=== PATIENT | female | born 1965 | race Caucasian/White ===

== ENCOUNTER 2024-12-10 00:32 | Observation (INO) ==
[2024-12-10] MEDS ORDERED: MORPHINE SULFATE INJ 4 MG IVP PRN (00:39)
[2024-12-10] MEDS ORDERED: NS 250 ML IV 25 ML IV PRN (00:39)
[2024-12-10 03:22] VITALS: BMI 32.9
[2024-12-10] MEDS: D5 1/2 NS 1,000 ML 1,000 ML IV SCH (04:05)
[2024-12-10] MEDS: ZOSYN VIAL 3.375 GRAMS 3.375 G in NS 100 ML IV 100 ML IV SCH (04:05)
[2024-12-10 05:13] LABS: BASOPHILS # (AUTO) 0.1 X10^3/uL (0.0-0.1); LYMPHOCYTES # (AUTO) 1.4 X10^3/uL (1.3-2.9); MEAN PLATELET VOLUME 8.2 fL (7.4-11.0); RED CELL DISTRIBUTION WIDTH 13.8 % (11.6-16.5)
[2024-12-10 05:20] LABS: BASOPHILS % (AUTO) 0.4 % (0.2-1.0); EOSINOPHILS % (AUTO) 0.1 % (0.9-2.9); HEMATOCRIT 40.4 % (36.0-47.0); HEMOGLOBIN 13.8 g/dL (12.0-16.0); LYMPHOCYTES % (AUTO) 9.9 % (21.0-51.0); MEAN CORPUSCULAR HEMOGLOBIN 31.2 pg (27.0-34.0); MEAN CORPUSCULAR HGB CONC 34.3 g/dL (33.0-35.0); MEAN CORPUSCULAR VOLUME 91.1 fL (80.0-100.0); MONOCYTES # (AUTO) 1.6 x10^3/uL (0.3-0.8); MONOCYTES % (AUTO) 11.4 % (0.0-13.0); NEUTROPHILS # (AUTO) 10.9 x10^3/uL (2.2-4.8); NEUTROPHILS % (AUTO) 78.2 % (42.0-75.0); PLATELET COUNT 258 X10^3/uL (150.0-450.0); RED BLOOD COUNT 4.44 X10^6/uL (3.5-5.4)
[2024-12-10 05:29] LABS: ALANINE AMINOTRANSFERASE 43 Units/L (12-78); ALBUMIN 3.8 g/dL (3.4-5.0); ALKALINE PHOSPHATASE 59 Units/L (46-116); ASPARTATE AMINO TRANSFERASE 23 Units/L (15-37); BLOOD UREA NITROGEN 9 mg/dL (7-18); CALCIUM 9.1 mg/dL (8.5-10.1); CARBON DIOXIDE 27.4 mmol/L (21-32); CHLORIDE 101 mmol/L (98-107); COR NA(FOR HYPERGLY) 136 mmol/L (136-145); GLUCOSE 117 mg/dL (65-99); SODIUM 136 mmol/L (136-145); TOTAL PROTEIN 6.9 g/dL (6.4-8.2); eGFR NON BLACK RACES > 60 (>60)
[2024-12-10] MEDS: LOVENOX INJ 40 MG SYR SC SCH (08:26)
[2024-12-10] MEDS: PULMICORT NEB TX 0.5 MG NEB SCH (09:09)
[2024-12-10] MEDS: DUONEB 0.5 MG/3 MG (3 mL) NEB SCH (09:09)
[2024-12-10] MEDS: DUONEB 0.5 MG/3 MG (3 mL) NEB ONE (09:49)
[2024-12-10] MEDS: PULMICORT NEB TX 0.5 MG NEB ONE (09:49)
[2024-12-10] MEDS: ZOFRAN INJ 4 MG VIAL IVP PRN (11:11)
[2024-12-10] MEDS: MAALOX or MYLANTA PO PRN (11:11)
[2024-12-10] MEDS: MORPHINE SULFATE INJ 2 MG INJ IVP PRN (11:12)
--- NOTE | 2024-12-10 11:54 | RAD ---
EXAM:CHEST, 1 VIEWHISTORY:SOB; GBCOMPARISON:12/03/2024FINDINGS:The cardiomediastinal silhouette is stable.Hypoventilatory exam with scattered bilateral airspace opacities. No pneumothorax or effusion.No acute osseous abnormality.IMPRESSION:Opacities which may reflect hypoventilatory changes/atelectasis, edema, or pneumonia. Continued follow-up recommended.THIS IS AN ELECTRONICALLY VERIFIED FINAL REPORT12/10/2024 11:50 AM - Electronically signed by Paul Joshi MD
[2024-12-10] MEDS: TYLENOL 325 MG TAB PO PRN (17:00)
[2024-12-10] MEDS: MILK OF MAGNESIA PO ONE (21:13)
[2024-12-11 06:18] LABS: BASOPHILS # (AUTO) 0.1 X10^3/uL (0.0-0.1); BASOPHILS % (AUTO) 0.5 % (0.2-1.0); EOSINOPHILS % (AUTO) 0.1 % (0.9-2.9); HEMATOCRIT 37.4 % (36.0-47.0); HEMOGLOBIN 12.8 g/dL (12.0-16.0); LYMPHOCYTES # (AUTO) 1.2 X10^3/uL (1.3-2.9); LYMPHOCYTES % (AUTO) 6.5 % (21.0-51.0); MEAN CORPUSCULAR HEMOGLOBIN 31.2 pg (27.0-34.0); MEAN CORPUSCULAR HGB CONC 34.3 g/dL (33.0-35.0); MEAN PLATELET VOLUME 8.7 fL (7.4-11.0); NEUTROPHILS # (AUTO) 15.2 x10^3/uL (2.2-4.8); NEUTROPHILS % (AUTO) 81.9 % (42.0-75.0); PLATELET COUNT 255 X10^3/uL (150.0-450.0); RED BLOOD COUNT 4.11 X10^6/uL (3.5-5.4); RED CELL DISTRIBUTION WIDTH 14.1 % (11.6-16.5); WHITE BLOOD COUNT 18.5 X10^3/uL (3.6-10.0)
[2024-12-11 06:35] LABS: ALANINE AMINOTRANSFERASE 34 Units/L (12-78); ALBUMIN 2.9 g/dL (3.4-5.0); ALKALINE PHOSPHATASE 56 Units/L (46-116); ASPARTATE AMINO TRANSFERASE 23 Units/L (15-37); BLOOD UREA NITROGEN 11 mg/dL (7-18); CALCIUM 8.8 mg/dL (8.5-10.1); CARBON DIOXIDE 28.4 mmol/L (21-32); CHLORIDE 101 mmol/L (98-107); COR CA(FOR HYPOALB) 9.7 mg/dL (8.5-10.1); COR NA(FOR HYPERGLY) 138 mmol/L (136-145); CREATININE 0.65 mg/dL (0.55-1.02); GLUCOSE 131 mg/dL (65-99); POTASSIUM 3.9 mmol/L (3.5-5.1); SODIUM 137 mmol/L (136-145); TOTAL PROTEIN 6.3 g/dL (6.4-8.2); eGFR NON BLACK RACES > 60 (>60)
--- NOTE | 2024-12-11 12:30 | NM ---
EXAM: NUCLEAR MEDICINE HEPATOBILIARY SCINTIGRAPHY HISTORY: possible biliary leak; . COMPARISON: None. TECHNIQUE: RADIOPHARMACEUTICAL: 5.8 mCi Tc-99m mebrofenin i.v. Following intravenous administration of Tc-99m mebrofenin, sequential abdominal images were obtained through 60 minutes. FINDINGS: Almost immediately, there is abnormal linear activity seen extending to the right of the common bile duct and into the gallbladder fossa. Normal liver activity. Normal excretion of activity into the common bile duct and small bowel loops. IMPRESSION: Positive for bile leak. THIS IS AN ELECTRONICALLY VERIFIED FINAL REPORT 12/11/2024 12:11 PM - Electronically signed by Hans Vásquez MD
[2024-12-11 15:56] VITALS: BP 184/94; PULSE 111; RESP 18; TEMP 98.4; O2SAT 94
== END 2024-12-11 16:30 | disposition short-term general hospital (02) ==
LOC: MED/SURG
PROVIDERS: ADMIT Surgery; ATTEND Surgery
DX: K91.89 Other postprocedural complications and disorders of digestive system; R07.9 Chest pain, unspecified; R06.02 Shortness of breath; R73.9 Hyperglycemia, unspecified; Z90.49 Acquired absence of other specified parts of digestive tract; R10.11 Right upper quadrant pain; G89.18 Other acute postprocedural pain; E80.6 Other disorders of bilirubin metabolism